=== PATIENT | male | born 1965 | race African-American/Black ===

== ENCOUNTER 2016-05-28 06:36 | Emergency (ER) | payer MEDICARE, MEDICAID ==
[~2016-05-28] VITALS: Ht 170.2 cm; Wt 86.4 kg
[~2016-05-28 06:36] MED LIST: AMLO-511 PO; ARIP10TA14 PO; AZIT250T6 PO; BACL10TA PO; PANT40TA25 PO
[2016-05-28] MEDS ORDERED: HYDR10SY16 PO (06:52)
[2016-05-28] MEDS ORDERED: HYDROCODONE/ACETAMINOPHEN 5-325 MG TABLET PO ONE (07:15)
[2016-05-28] MEDS ORDERED: IBUPROFEN 600 MG TABLET PO ONE (07:15)
[2016-05-28 09:23] VITALS: BP 160/95
== END 2016-05-28 09:36 | disposition home or self-care (01) ==
LOC: EMS 06:38
DX: R07.89 Other chest pain (principal); I10 Essential (primary) hypertension; F12.90 Cannabis use, unspecified, uncomplicated; F14.90 Cocaine use, unspecified, uncomplicated; Z88.0 Allergy status to penicillin; Z91.010 Allergy to peanuts; Z91.011 Allergy to milk products
CPT/HCPCS: 93005; 99284

== ENCOUNTER 2016-07-07 00:32 | Inpatient (IN) | payer MEDICARE, MEDICAID ==
[~2016-07-07] VITALS: Ht 170.2 cm; Wt 82.6 kg
[~2016-07-07 00:32] MED LIST changes: -AMLO-511 PO; -ARIP10TA14 PO; -AZIT250T6 PO; -BACL10TA PO; +HYDR10SY16 PO; -PANT40TA25 PO
[2016-07-07] MEDS ORDERED: QUEtiapine FUMARATE 100 MG TABLET PO PRN (03:00)
[2016-07-07 03:30] VITALS: BP 158/94
[2016-07-07] MEDS ORDERED: PNEUMOCOCCAL VACCINE POLYVALENT 0.5 ML VIAL [PPSV23] IM ONE (05:00)
[2016-07-07] MEDS ORDERED: INFLUENZA VIRUS VACCINE QVS 2016-17 (3YR+)/PF 60 MCG/0.5 ML SYRINGE IM ONE (05:00)
[2016-07-07] MEDS: LORazepam 1 MG TABLET PO PRN ×4 (05:47→21:32)
[2016-07-07 08:17] VITALS: BP 135/94
[2016-07-07] MEDS ORDERED: ACETAMINOPHEN 325 MG TABLET PO PRN (11:00)
[2016-07-07] MEDS: IBUPROFEN 600 MG TABLET PO PRN (11:08)
[2016-07-07] MEDS ORDERED: CloNIDine HCL 0.1 MG TABLET PO PRN (11:45)
[2016-07-07 16:00] VITALS: BP 131/82
[2016-07-07] MEDS: HydrOXYzine PAMOATE 25 MG CAPSULE PO SCH (17:29)
[2016-07-07] MEDS: TraMADol HCL 50 MG TABLET PO PRN (20:37)
[2016-07-07] MEDS: ZOLPIDEM TARTRATE 10 MG TABLET PO PRN (21:32)
[2016-07-08 01:35] VITALS: BP 138/86
[2016-07-08] MEDS: LORazepam 1 MG TABLET PO PRN ×4 (01:36→20:36)
[2016-07-08] MEDS: TraMADol HCL 50 MG TABLET PO PRN ×2 (06:27→16:35)
[2016-07-08] MEDS: LISINOPRIL 20 MG TABLET PO SCH (08:08)
[2016-07-08] MEDS: ARIPiprazole 10 MG TABLET PO SCH (08:08)
[2016-07-08] MEDS: AmLODIPine BESYLATE 5 MG TABLET PO SCH (08:08)
[2016-07-08] MEDS: HydrOXYzine PAMOATE 25 MG CAPSULE PO SCH ×3 (08:08→16:34)
[2016-07-08] MEDS: PANTOPRAZOLE SODIUM 40 MG DR TABLET PO SCH (08:08)
[2016-07-08 08:37] VITALS: BP 134/76
[2016-07-08 16:00] VITALS: BP 111/68
[2016-07-08] MEDS: BACLOFEN 10 MG TABLET PO PRN (16:35)
[2016-07-08] MEDS: ZOLPIDEM TARTRATE 10 MG TABLET PO PRN (20:36)
[2016-07-09 03:40] VITALS: BP 113/77
[2016-07-09] MEDS: LORazepam 1 MG TABLET PO PRN ×3 (03:46→20:16)
[2016-07-09] MEDS ORDERED: HYDR-4031 PO (04:19)
[2016-07-09] MEDS ORDERED: ARIP10TA14 PO (04:19)
[2016-07-09] MEDS ORDERED: OMEP20 PO (04:22)
[2016-07-09] MEDS ORDERED: AMLO-511 PO (04:22)
[2016-07-09] MEDS ORDERED: LISI-662 PO (04:22)
[2016-07-09 08:27] VITALS: BP 119/74
[2016-07-09] MEDS: AmLODIPine BESYLATE 5 MG TABLET PO SCH (09:21)
[2016-07-09] MEDS: LISINOPRIL 20 MG TABLET PO SCH (09:21)
[2016-07-09] MEDS: ARIPiprazole 10 MG TABLET PO SCH (09:21)
[2016-07-09] MEDS: PANTOPRAZOLE SODIUM 40 MG DR TABLET PO SCH (09:21)
[2016-07-09] MEDS: HydrOXYzine PAMOATE 25 MG CAPSULE PO SCH ×3 (09:21→16:16)
[2016-07-09] MEDS: TraMADol HCL 50 MG TABLET PO PRN (13:52)
[2016-07-09 16:01] VITALS: BP 113/66
[2016-07-09] MEDS: BACLOFEN 10 MG TABLET PO PRN (16:16)
[2016-07-09] MEDS: ZOLPIDEM TARTRATE 10 MG TABLET PO PRN (20:15)
[2016-07-10 05:26] VITALS: BP 119/75
[2016-07-10] MEDS: IBUPROFEN 600 MG TABLET PO PRN (05:36)
[2016-07-10] MEDS: LORazepam 1 MG TABLET PO PRN ×2 (06:53→16:46)
[2016-07-10] MEDS: LISINOPRIL 20 MG TABLET PO SCH (08:26)
[2016-07-10] MEDS: HydrOXYzine PAMOATE 25 MG CAPSULE PO SCH ×3 (08:26→16:46)
[2016-07-10] MEDS: PANTOPRAZOLE SODIUM 40 MG DR TABLET PO SCH (08:26)
[2016-07-10] MEDS: ARIPiprazole 10 MG TABLET PO SCH (08:27)
[2016-07-10] MEDS: AmLODIPine BESYLATE 5 MG TABLET PO SCH (08:27)
[2016-07-10 08:38] VITALS: BP 107/62
[2016-07-10 16:18] VITALS: BP 114/74
[2016-07-10] MEDS: BACLOFEN 10 MG TABLET PO PRN (16:47)
[2016-07-10] MEDS: TraMADol HCL 50 MG TABLET PO PRN (16:47)
[2016-07-10] MEDS: ZOLPIDEM TARTRATE 10 MG TABLET PO PRN (20:32)
[2016-07-11 06:30] VITALS: BP 121/75
[2016-07-11] MEDS: IBUPROFEN 600 MG TABLET PO PRN ×2 (06:39→16:44)
[2016-07-11 07:40] LABS: BASOPHILS % (AUTO) 0.6 % (0.0-2.0); EOSINOPHILS % (AUTO) 2.2 % (1.0-6.0); HEMATOCRIT 45.5 % (41-53); HEMOGLOBIN 14.6 g/dL (13.5-17.5); LYMPHOCYTES # (AUTO) 2.2 K/uL (1.0-4.8); LYMPHOCYTES % (AUTO) 24.8 % (22.0-44.0); MEAN CORPUSCULAR HEMOGLOBIN 27.6 pg (26.0-34.0); MEAN CORPUSCULAR HGB CONC 32.1 G/dL (31.0-37.0); MEAN CORPUSCULAR VOLUME 86 fL (80-100); MONOCYTES # (AUTO) 0.6 K/uL (0.1-1.0); MONOCYTES % (AUTO) 6.6 % (2.0-9.0); NEUTROPHILS # (AUTO) 5.9 K/uL (1.8-7.7); NEUTROPHILS % (AUTO) 65.8 % (40.0-70.0); PLATELET COUNT (AUTO) 267 K/uL (150-450); RED BLOOD CELL COUNT(AUTO) 5.28 MIL/uL (4.50-5.90); RED CELL DISTRIBUTION WIDTH 12.5 % (11.5-14.5)
[2016-07-11 08:08] LABS: ALANINE AMINOTRANSFERASE 43 U/L (12-78); ALBUMIN 3.7 g/dL (3.4-5.0); ANION GAP 4 mmol/L (8-16); ASPARTATE AMINOTRANSFERASE 23 U/L (15-37); BILIRUBIN,TOTAL 0.3 mg/dL (0.1-1.0); CALCIUM, TOTAL 8.9 mg/dL (8.8-10.5); CARBON DIOXIDE 31 mmol/L (22-29); CHLORIDE 104 mmol/L (98-107); CHOL/HDL RATIO 3.7 (4.2-7.3); CREATININE 1.01 mg/dL (0.60-1.30); GLOMERULAR FILTR. RATE CALC > 60 mL/min (>60); POTASSIUM 4.5 mmol/L (3.5-5.1); SODIUM SERUM 139 mmol/L (136-145); TOTAL PROTEIN, SERUM 7.1 g/dL (6.4-8.2); UREA NITROGEN, BLOOD 14 mg/dL (7-18)
[2016-07-11 08:20] VITALS: BP 123/67
[2016-07-11 08:24] LABS: HEMOGLOBIN A1C 5.3 % (4.5-6.2)
[2016-07-11 08:29] LABS: THYROID STIMULATING HORMONE 1.33 uIU/mL (0.36-3.74)
[2016-07-11] MEDS: PANTOPRAZOLE SODIUM 40 MG DR TABLET PO SCH (09:21)
[2016-07-11] MEDS: ARIPiprazole 10 MG TABLET PO SCH (09:21)
[2016-07-11] MEDS: AmLODIPine BESYLATE 5 MG TABLET PO SCH (09:22)
[2016-07-11] MEDS: HydrOXYzine PAMOATE 25 MG CAPSULE PO SCH ×3 (09:22→16:44)
[2016-07-11] MEDS: LISINOPRIL 20 MG TABLET PO SCH (09:22)
[2016-07-11] MEDS: TraMADol HCL 50 MG TABLET PO PRN (10:18)
[2016-07-11 11:18] VITALS: BP 127/75
[2016-07-11] MEDS: LORazepam 1 MG TABLET PO PRN ×2 (15:15→19:17)
[2016-07-11 16:49] VITALS: BP 125/80
[2016-07-12 04:58] VITALS: BP 134/87
[2016-07-12] MEDS: TraMADol HCL 50 MG TABLET PO PRN ×2 (05:00→17:51)
[2016-07-12 09:00] VITALS: BP 119/61
[2016-07-12 09:14] VITALS: BP 119/61
[2016-07-12] MEDS: HydrOXYzine PAMOATE 25 MG CAPSULE PO SCH ×3 (09:23→17:22)
[2016-07-12] MEDS: PANTOPRAZOLE SODIUM 40 MG DR TABLET PO SCH (09:23)
[2016-07-12] MEDS: LISINOPRIL 20 MG TABLET PO SCH (09:24)
[2016-07-12] MEDS: ARIPiprazole 10 MG TABLET PO SCH (09:24)
[2016-07-12] MEDS: AmLODIPine BESYLATE 5 MG TABLET PO SCH (09:24)
[2016-07-12] MEDS: LORazepam 1 MG TABLET PO PRN (13:18)
[2016-07-12] MEDS: IBUPROFEN 600 MG TABLET PO PRN (13:18)
[2016-07-12 16:46] VITALS: BP 131/75
[2016-07-12 17:49] VITALS: BP 129/65
[2016-07-12] MEDS: ZOLPIDEM TARTRATE 10 MG TABLET PO PRN (22:10)
[2016-07-13 04:50] VITALS: BP 138/70
[2016-07-13] MEDS: TraMADol HCL 50 MG TABLET PO PRN (04:55)
== END 2016-07-13 07:40 | disposition home or self-care (01) | DRG 885 ==
LOC: B3A 02:00 → EDSTATUS 03:29 → B3A 07-10 13:56 → B2S 07-11 10:43
PROVIDERS: ATTEND Psychiatry & Neurology Psychiatry
DX: F25.0 Schizoaffective disorder, bipolar type (principal); E55.9 Vitamin D deficiency, unspecified; B19.20 Unspecified viral hepatitis C without hepatic coma; F17.210 Nicotine dependence, cigarettes, uncomplicated; I12.9 Hypertensive chronic kidney disease with stage 1 through stage 4 chronic kidney disease, or unspecified chronic kidney disease; F15.10 Other stimulant abuse, uncomplicated; F14.10 Cocaine abuse, uncomplicated; K21.9 Gastro-esophageal reflux disease without esophagitis; M19.90 Unspecified osteoarthritis, unspecified site; F12.10 Cannabis abuse, uncomplicated; N18.9 Chronic kidney disease, unspecified; Z91.5 Personal history of self-harm; Z79.899 Other long term (current) drug therapy; Z88.0 Allergy status to penicillin; Z88.8 Allergy status to other drugs, medicaments and biological substances; Z91.011 Allergy to milk products; Z91.010 Allergy to peanuts; Z28.21 Immunization not carried out because of patient refusal; Z72.89 Other problems related to lifestyle; Z98.890 Other specified postprocedural states
CPT/HCPCS: 83036; 84439; 84443

== ENCOUNTER 2016-08-31 14:52 | Inpatient (IN) | payer MEDICARE, MEDICAID ==
[~2016-08-31] VITALS: Ht 172.7 cm; Wt 76.2 kg
[~2016-08-31 14:52] MED LIST changes: +AMLO-511 PO; +ARIP10TA14 PO; +HYDR-4031 PO; -HYDR10SY16 PO; +LISI-662 PO; +OMEP20 PO
[2016-08-31 15:27] VITALS: BP 142/64
[2016-08-31] MEDS ORDERED: ZOLPIDEM TARTRATE 10 MG TABLET PO PRN (16:00)
[2016-08-31] MEDS ORDERED: HALOPERIDOL 5 MG TABLET PO PRN (16:00)
[2016-08-31 16:41] VITALS: BP 131/85
[2016-08-31] MEDS ORDERED: PNEUMOCOCCAL VACCINE POLYVALENT 0.5 ML VIAL [PPSV23] IM ONE (17:00)
[2016-08-31] MEDS: HydrOXYzine PAMOATE 25 MG CAPSULE PO SCH (18:09)
[2016-09-01 00:12] VITALS: BP 134/81
[2016-09-01 07:58] LABS: BASOPHILS # (AUTO) 0.06 K/uL (0.00-0.20); BASOPHILS % (AUTO) 0.9 % (0.0-2.0); EOSINOPHILS % (AUTO) 2.88 % (1.0-6.0); HEMATOCRIT 39.9 % (41-53); LYMPHOCYTES # (AUTO) 1.9 K/uL (1.0-4.8); LYMPHOCYTES % (AUTO) 26.8 % (22.0-44.0); MEAN CORPUSCULAR HEMOGLOBIN 28.2 pg (26.0-34.0); MEAN CORPUSCULAR HGB CONC 32.5 G/dL (31.0-37.0); MEAN CORPUSCULAR VOLUME 87 fL (80-100); MONOCYTES # (AUTO) 0.6 K/uL (0.1-1.0); MONOCYTES % (AUTO) 8.4 % (2.0-9.0); NEUTROPHILS # (AUTO) 4.3 K/uL (1.8-7.7); PLATELET COUNT (AUTO) 197 K/uL (150-450); RED BLOOD CELL COUNT(AUTO) 4.61 MIL/uL (4.50-5.90); RED CELL DISTRIBUTION WIDTH 14.6 % (11.5-14.5)
[2016-09-01 08:10] VITALS: BP 136/78
[2016-09-01 08:13] LABS: ALANINE AMINOTRANSFERASE 42 U/L (12-78); ALBUMIN 3.4 g/dL (3.4-5.0); ANION GAP 7 mmol/L (8-16); ASPARTATE AMINOTRANSFERASE 23 U/L (15-37); BILIRUBIN,TOTAL 0.2 mg/dL (0.1-1.0); CALCIUM, TOTAL 8.8 mg/dL (8.8-10.5); CARBON DIOXIDE 29 mmol/L (22-29); CHLORIDE 107 mmol/L (98-107); CREATININE 0.97 mg/dL (0.60-1.30); GLOMERULAR FILTR. RATE CALC > 60 mL/min (>60); POTASSIUM 4.1 mmol/L (3.5-5.1); SODIUM SERUM 143 mmol/L (136-145); TOTAL PROTEIN, SERUM 6.5 g/dL (6.4-8.2); UREA NITROGEN, BLOOD 13 mg/dL (7-18)
[2016-09-01] MEDS: ARIPiprazole 10 MG TABLET PO SCH (08:56)
[2016-09-01] MEDS: HydrOXYzine PAMOATE 25 MG CAPSULE PO SCH ×3 (08:56→16:29)
[2016-09-01] MEDS: OMEPRAZOLE 20 MG CAPSULE PO SCH (08:56)
[2016-09-01] MEDS: AmLODIPine BESYLATE 5 MG TABLET PO SCH (08:57)
[2016-09-01] MEDS: LISINOPRIL 20 MG TABLET PO SCH (08:57)
[2016-09-01 09:36] LABS: APPEARANCE,URINE CLEAR (CLEAR); GLUCOSE, URINE (UA) NEGATIVE (NEGATIVE); KETONES,URINE NEGATIVE (NEGATIVE); LEUKOCYTE ESTERASE ,URINE NEGATIVE (NEGATIVE); OCCULT BLOOD,URINE NEGATIVE (NEGATIVE); PH,URINE 5.5 (5.0-8.0); PROTEIN,URINE NEGATIVE (NEGATIVE)
[2016-09-01 09:37] LABS: ADD UA MICROSCOPIC NO
[2016-09-01 10:20] VITALS: BP 135/83
[2016-09-01] MEDS: ACETAMINOPHEN 325 MG TABLET PO PRN ×2 (10:21→19:21)
[2016-09-01 11:21] VITALS: BP 128/80
[2016-09-01] MEDS: GABAPENTIN 300 MG CAPSULE PO SCH ×2 (13:04→16:29)
[2016-09-01 16:00] VITALS: BP 123/71
[2016-09-01] MEDS: IBUPROFEN 600 MG TABLET PO PRN (16:30)
[2016-09-01 19:21] VITALS: BP 126/74
[2016-09-02] MEDS: LORazepam 2 MG TABLET PO PRN ×3 (00:32→16:46)
[2016-09-02 02:24] VITALS: BP 135/80
[2016-09-02 08:08] VITALS: BP 141/56
[2016-09-02] MEDS: ARIPiprazole 10 MG TABLET PO SCH (08:43)
[2016-09-02] MEDS: HydrOXYzine PAMOATE 25 MG CAPSULE PO SCH ×3 (08:43→16:46)
[2016-09-02] MEDS: GABAPENTIN 300 MG CAPSULE PO SCH ×3 (08:43→16:46)
[2016-09-02] MEDS: OMEPRAZOLE 20 MG CAPSULE PO SCH (08:44)
[2016-09-02] MEDS: AmLODIPine BESYLATE 5 MG TABLET PO SCH (08:44)
[2016-09-02] MEDS: LISINOPRIL 20 MG TABLET PO SCH (08:44)
[2016-09-02 16:34] VITALS: BP 134/92
[2016-09-02] MEDS: IBUPROFEN 600 MG TABLET PO PRN (16:47)
[2016-09-03 04:08] VITALS: BP 141/88
[2016-09-03] MEDS: LORazepam 2 MG TABLET PO PRN ×3 (06:30→21:36)
[2016-09-03] MEDS: IBUPROFEN 600 MG TABLET PO PRN (06:31)
[2016-09-03] MEDS: GABAPENTIN 300 MG CAPSULE PO SCH ×3 (08:04→17:00)
[2016-09-03] MEDS: ARIPiprazole 10 MG TABLET PO SCH (08:04)
[2016-09-03] MEDS: LISINOPRIL 20 MG TABLET PO SCH (08:05)
[2016-09-03] MEDS: OMEPRAZOLE 20 MG CAPSULE PO SCH (08:05)
[2016-09-03] MEDS: AmLODIPine BESYLATE 5 MG TABLET PO SCH (08:05)
[2016-09-03] MEDS: HydrOXYzine PAMOATE 25 MG CAPSULE PO SCH ×3 (08:05→16:59)
[2016-09-03 08:15] VITALS: BP 124/74
[2016-09-03 16:09] VITALS: BP 126/73
[2016-09-04 04:32] VITALS: BP 126/74
[2016-09-04] MEDS: LORazepam 2 MG TABLET PO PRN ×2 (04:32→08:46)
[2016-09-04 08:02] VITALS: BP 120/70
[2016-09-04] MEDS: IBUPROFEN 600 MG TABLET PO PRN (08:46)
[2016-09-04] MEDS: GABAPENTIN 300 MG CAPSULE PO SCH ×3 (08:46→17:28)
[2016-09-04] MEDS: OMEPRAZOLE 20 MG CAPSULE PO SCH (08:46)
[2016-09-04] MEDS: HydrOXYzine PAMOATE 25 MG CAPSULE PO SCH ×3 (08:46→17:00)
[2016-09-04] MEDS: AmLODIPine BESYLATE 5 MG TABLET PO SCH (08:46)
[2016-09-04] MEDS: ARIPiprazole 10 MG TABLET PO SCH (08:46)
[2016-09-04] MEDS: LISINOPRIL 20 MG TABLET PO SCH (08:50)
[2016-09-04] MEDS ORDERED: TraMADol HCL 50 MG TABLET PO PRN (11:30)
[2016-09-04] MEDS ORDERED: BACLOFEN 10 MG TABLET PO PRN (11:30)
[2016-09-04] MEDS ORDERED: BACLOFEN 10 MG TABLET PO SCH (13:00)
[2016-09-04] MEDS ORDERED: GABA-531 PO (15:41)
[2016-09-04 16:00] VITALS: BP 120/67
== END 2016-09-04 18:15 | disposition home or self-care (01) | DRG 885 ==
LOC: B2S 16:02 → B3A 09-02 14:35
PROVIDERS: ADMIT Psychiatry & Neurology Psychiatry; ATTEND Psychiatry & Neurology Psychiatry
PROC: 3E0234Z Introduction of Serum, Toxoid and Vaccine into Muscle, Percutaneous Approach (ICD-10-PCS; principal; 2016-09-01)
DX: F25.9 Schizoaffective disorder, unspecified (principal); F22 Delusional disorders; K21.9 Gastro-esophageal reflux disease without esophagitis; I10 Essential (primary) hypertension; E55.9 Vitamin D deficiency, unspecified; D64.9 Anemia, unspecified; F12.90 Cannabis use, unspecified, uncomplicated; F15.90 Other stimulant use, unspecified, uncomplicated; F17.200 Nicotine dependence, unspecified, uncomplicated; M19.90 Unspecified osteoarthritis, unspecified site; Z80.3 Family history of malignant neoplasm of breast; Z82.49 Family history of ischemic heart disease and other diseases of the circulatory system; Z91.010 Allergy to peanuts; Z88.0 Allergy status to penicillin; Z88.8 Allergy status to other drugs, medicaments and biological substances; Z59.0 Homelessness; Z91.048 Other nonmedicinal substance allergy status; Z72.89 Other problems related to lifestyle; Z23 Encounter for immunization; Z79.899 Other long term (current) drug therapy
CPT/HCPCS: 80307; 90471

== ENCOUNTER 2017-03-12 10:16 | Inpatient (IN) | payer MEDICARE ==
[~2017-03-12] VITALS: Ht 172.7 cm; Wt 77.1 kg
[~2017-03-12 10:16] MED LIST changes: -AMLO-511 PO; -ARIP10TA14 PO; +ARIP10TA8 PO; +GABA-531 PO; -LISI-662 PO; -OMEP20 PO
[2017-03-12 10:40] LABS: EOSINOPHILS % (AUTO) 1.7 % (1.0-6.0); HEMATOCRIT 35.8 % (41-53); HEMOGLOBIN 12.2 g/dL (13.5-17.5); LYMPHOCYTES % (AUTO) 15.2 % (22.0-44.0); MEAN CORPUSCULAR HEMOGLOBIN 29.5 pg (26.0-34.0); MEAN CORPUSCULAR VOLUME 87 fL (80-100); MONOCYTES # (AUTO) 0.7 K/uL (0.1-1.0); MONOCYTES % (AUTO) 10.1 % (2.0-9.0); NEUTROPHILS # (AUTO) 4.6 K/uL (1.8-7.7); PLATELET COUNT (AUTO) 257 K/uL (150-450); RED BLOOD CELL COUNT(AUTO) 4.12 MIL/uL (4.50-5.90); RED CELL DISTRIBUTION WIDTH 14.1 % (11.5-14.5); WHITE BLOOD COUNT (AUTO) 6.4 K/uL (4.5-11.0)
[2017-03-12 10:48] LABS: ANION GAP 10 mmol/L (8-16); CALCIUM, TOTAL 8.8 mg/dL (8.8-10.5); CARBON DIOXIDE 25 mmol/L (22-29); CHLORIDE 103 mmol/L (98-107); CREATININE 0.98 mg/dL (0.60-1.30); GLOMERULAR FILTR. RATE CALC > 60 mL/min (>60); POTASSIUM 3.3 mmol/L (3.5-5.1); SODIUM SERUM 138 mmol/L (136-145); UREA NITROGEN, BLOOD 13 mg/dL (7-18)
[2017-03-12 10:54] LABS: ALANINE AMINOTRANSFERASE 37 U/L (12-78); ALBUMIN 3.2 g/dL (3.4-5.0); ASPARTATE AMINOTRANSFERASE 36 U/L (15-37); BILIRUBIN,TOTAL 0.6 mg/dL (0.1-1.0); TOTAL PROTEIN, SERUM 6.9 g/dL (6.4-8.2)
[2017-03-12] MEDS ORDERED: ARIP15TA2 PO (11:27)
[2017-03-12] MEDS ORDERED: HALOPERIDOL LACTATE 5 MG/ML VIAL IM ONE (11:30)
[2017-03-12] MEDS ORDERED: DiphenhydrAMINE HCL 50 MG/ML VIAL IM ONE (11:30)
[2017-03-12] MEDS ORDERED: LORazepam 2 MG/ML VIAL IM ONE (11:30)
[2017-03-12] MEDS: POTASSIUM CHLORIDE 20 MEQ ER TABLET PO ONE (13:40)
[2017-03-12 14:03] LABS: CHOL/HDL RATIO 1.9 (4.2-7.3); THYROID STIMULATING HORMONE 0.54 uIU/mL (0.36-3.74)
[2017-03-12 16:00] VITALS: BP 132/81
[2017-03-12] MEDS ORDERED: INFLUENZA VIRUS VACCINE QVS 2017-18 (3YR+)/PF 60 MCG/0.5 ML SYRINGE IM ONE (18:30)
[2017-03-13] MEDS: ARIPiprazole 15 MG TABLET PO SCH (08:45)
[2017-03-13] MEDS: GABAPENTIN 300 MG CAPSULE PO SCH ×3 (08:45→16:33)
[2017-03-13 08:48] VITALS: BP 111/66
[2017-03-13] MEDS ORDERED: POTASSIUM CHLORIDE 20 MEQ ER TABLET PO ONE (15:15)
[2017-03-13] MEDS: POTASSIUM CHLORIDE 20 MEQ ER TABLET PO ONE (15:18)
[2017-03-13 16:20] VITALS: BP 132/81
[2017-03-13] MEDS: LORazepam 2 MG TABLET PO PRN (16:33)
[2017-03-14 08:03] VITALS: BP 135/84
[2017-03-14] MEDS: GABAPENTIN 300 MG CAPSULE PO SCH ×3 (09:02→16:23)
[2017-03-14] MEDS: ARIPiprazole 15 MG TABLET PO SCH (09:02)
[2017-03-14 16:00] VITALS: BP 128/75
[2017-03-14] MEDS: HALOPERIDOL 5 MG TABLET PO PRN (16:23)
[2017-03-14] MEDS: LORazepam 2 MG TABLET PO PRN (16:23)
[2017-03-15 07:07] VITALS: BP 142/94
[2017-03-15 08:02] VITALS: BP 145/85
[2017-03-15] MEDS: GABAPENTIN 300 MG CAPSULE PO SCH ×3 (08:22→16:23)
[2017-03-15] MEDS: ARIPiprazole 15 MG TABLET PO SCH (08:23)
[2017-03-15] MEDS: LORazepam 2 MG TABLET PO PRN ×2 (08:23→16:23)
[2017-03-15 16:00] VITALS: BP 117/79
[2017-03-15] MEDS: HALOPERIDOL 5 MG TABLET PO PRN (18:05)
[2017-03-16 03:04] VITALS: BP 123/85
[2017-03-16 08:08] VITALS: BP 130/81
[2017-03-16] MEDS: GABAPENTIN 300 MG CAPSULE PO SCH ×3 (08:55→16:56)
[2017-03-16] MEDS: ARIPiprazole 15 MG TABLET PO SCH (08:55)
[2017-03-16] MEDS: LORazepam 2 MG TABLET PO PRN ×2 (11:29→16:56)
[2017-03-16] MEDS: HALOPERIDOL 5 MG TABLET PO PRN ×2 (11:29→16:57)
[2017-03-16 16:00] VITALS: BP 121/88
[2017-03-16] MEDS: ZOLPIDEM TARTRATE 10 MG TABLET PO PRN (20:32)
[2017-03-17 05:00] VITALS: BP 124/83
[2017-03-17] MEDS: ARIPiprazole 15 MG TABLET PO SCH (08:56)
[2017-03-17] MEDS: GABAPENTIN 300 MG CAPSULE PO SCH ×3 (08:56→16:10)
[2017-03-17 09:06] VITALS: BP 116/81
[2017-03-17] MEDS: HALOPERIDOL 5 MG TABLET PO PRN (16:10)
[2017-03-17] MEDS: LORazepam 2 MG TABLET PO PRN (16:10)
[2017-03-17 16:48] VITALS: BP 113/68
[2017-03-17] MEDS: ZOLPIDEM TARTRATE 10 MG TABLET PO PRN (20:14)
[2017-03-18 06:59] VITALS: BP 155/71
[2017-03-18] MEDS: ARIPiprazole 15 MG TABLET PO SCH (08:04)
[2017-03-18] MEDS: GABAPENTIN 300 MG CAPSULE PO SCH ×3 (08:04→16:25)
[2017-03-18 08:22] VITALS: BP 130/76
[2017-03-18] MEDS: LORazepam 2 MG TABLET PO PRN (09:43)
[2017-03-18] MEDS ORDERED: ARIP10TA8 PO (15:13)
[2017-03-19] MEDS ORDERED: ARIPiprazole 10 MG TABLET PO SCH (09:00)
== END 2017-03-18 16:55 | disposition short-term general hospital (02) | DRG 885 ==
LOC: EMS 10:17 → B3A 14:33
DX: F20.0 Paranoid schizophrenia (principal); Z59.0 Homelessness; D64.9 Anemia, unspecified; F14.90 Cocaine use, unspecified, uncomplicated; F32.9 Major depressive disorder, single episode, unspecified; I10 Essential (primary) hypertension; Z28.21 Immunization not carried out because of patient refusal; K21.9 Gastro-esophageal reflux disease without esophagitis; Z91.5 Personal history of self-harm; G89.29 Other chronic pain; Z88.0 Allergy status to penicillin; Z88.8 Allergy status to other drugs, medicaments and biological substances; Z91.011 Allergy to milk products; Z91.010 Allergy to peanuts
CPT/HCPCS: 84132; 84439; 84443; 90471; 96372; 99285; G0480; J1200; J1630; J2060

== ENCOUNTER 2019-02-10 20:16 | Inpatient (IN) | payer MEDICARE ==
[~2019-02-10] VITALS: Ht 170.2 cm; Wt 74.5 kg
[~2019-02-10 20:16] MED LIST changes: -HYDR-4031 PO
[2019-02-10] MEDS ORDERED: HALOPERIDOL 5 MG TABLET PO PRN (20:45)
[2019-02-10] MEDS ORDERED: ZOLPIDEM TARTRATE 10 MG TABLET PO PRN (20:45)
[2019-02-10 21:00] VITALS: BP 110/60
[2019-02-10 21:34] VITALS: BP 110/60
[2019-02-10 22:00] VITALS: BP 123/76
[2019-02-10 23:03] VITALS: BP 124/69
[2019-02-11] VITALS (8 sets, daily range): BP systolic 115–140; BP diastolic 72–100
[2019-02-11] MEDS ORDERED: INFLUENZA VIRUS VACCINE QVS 2019-20 (3YR+)/PF 60 MCG/0.5 ML SYRINGE IM ONE (06:45)
[2019-02-11 07:54] LABS: EOSINOPHILS % (AUTO) 3.9 % (1.0-6.0); HEMOGLOBIN 12.4 g/dL (13.5-17.5); LYMPHOCYTES # (AUTO) 1.7 K/uL (1.0-4.8); LYMPHOCYTES % (AUTO) 29.9 % (22.0-44.0); MEAN CORPUSCULAR HGB CONC 33.6 G/dL (31.0-37.0); MEAN CORPUSCULAR VOLUME 86 fL (80-100); MONOCYTES # (AUTO) 0.6 K/uL (0.1-1.0); MONOCYTES % (AUTO) 10.6 % (2.0-9.0); NEUTROPHILS # (AUTO) 3.1 K/uL (1.8-7.7); NEUTROPHILS % (AUTO) 54.6 % (40.0-70.0); PLATELET COUNT (AUTO) 179 K/uL (150-450); RED BLOOD CELL COUNT(AUTO) 4.29 MIL/uL (4.50-5.90); RED CELL DISTRIBUTION WIDTH 13.5 % (11.5-14.5)
[2019-02-11 07:59] LABS: HEMOGLOBIN A1C 5.3 % (4.5-6.2)
[2019-02-11] MEDS ORDERED: PETROLATUM,WHITE 28 GM JELLY TP PRN (08:15)
[2019-02-11] MEDS ORDERED: LOPERAMIDE HCL 2 MG CAPSULE PO PRN (08:15)
[2019-02-11] MEDS ORDERED: OMEPRAZOLE 20 MG CAPSULE PO PRN (08:15)
[2019-02-11] MEDS ORDERED: ONDANSETRON HCL 4 MG TABLET PO PRN (08:15)
[2019-02-11] MEDS ORDERED: MAG HYDROX/AL HYDROX/SIMETH ES 30 ML SUSPENSION UDCUP PO PRN (08:15)
[2019-02-11] MEDS ORDERED: ALBUTEROL SULFATE HFA 90 MCG/PUFF 8 GM INHALER IH PRN (08:15)
[2019-02-11] MEDS ORDERED: MAGNESIUM HYDROXIDE SUSPENSION 30 ML UDCUP PO PRN (08:15)
[2019-02-11] MEDS ORDERED: BENZOCAINE/MENTHOL LOZENGE MM PRN (08:15)
[2019-02-11] MEDS ORDERED: DOCUSATE SODIUM 100 MG CAPSULE PO PRN (08:15)
[2019-02-11] MEDS ORDERED: ACETAMINOPHEN 325 MG TABLET PO PRN (08:15)
[2019-02-11] MEDS ORDERED: CloNIDine HCL 0.1 MG TABLET PO PRN (08:15)
[2019-02-11] MEDS ORDERED: BACITRACIN 28.4 GM OINTMENT TP PRN (08:15)
[2019-02-11 08:29] LABS: ALANINE AMINOTRANSFERASE 32 U/L (12-78); ALBUMIN 2.9 g/dL (3.4-5.0); ALKALINE PHOSPHATASE 81 U/L (46-116); ANION GAP 7 mmol/L (8-16); ASPARTATE AMINOTRANSFERASE 30 U/L (15-37); BILIRUBIN,TOTAL 0.4 mg/dL (0.1-1.0); CARBON DIOXIDE 29 mmol/L (22-29); CHLORIDE 103 mmol/L (98-107); CHOL/HDL RATIO 2.4 (4.2-7.3); CHOLESTEROL 121 mg/dL (131-200); FREE T4 (FREE THYROXINE) 1.13 ng/dL (0.76-1.46); GLOMERULAR FILTR. RATE CALC > 60 mL/min (>60); GLUCOSE,RANDOM 83 mg/dL (70-110); HDL CHOLESTEROL 50 mg/dL (40-60); LDL CHOL (CALC.) 67 mg/dL (0-130); POTASSIUM 3.2 mmol/L (3.5-5.1); SODIUM SERUM 139 mmol/L (136-145); THYROID STIMULATING HORMONE 0.87 uIU/mL (0.36-3.74); TRIGLYCERIDES 19 mg/dL (15-150)
[2019-02-11 08:35] LABS: CALCIUM, TOTAL 8.2 mg/dL (8.8-10.5); UREA NITROGEN, BLOOD 10 mg/dL (7-18)
[2019-02-11] MEDS: LORazepam 2 MG TABLET PO PRN (09:21)
[2019-02-11] MEDS ORDERED: POTASSIUM CHLORIDE 20 MEQ ER TABLET PO ONE (09:30)
[2019-02-11] MEDS: ARIPiprazole 10 MG TABLET PO SCH (13:45)
[2019-02-11] MEDS: GABAPENTIN 300 MG CAPSULE PO SCH (16:39)
[2019-02-12 06:34] VITALS: BP 132/83
[2019-02-12 06:45] VITALS: BP 132/83
[2019-02-12 07:37] LABS: ANION GAP 8 mmol/L (8-16); CARBON DIOXIDE 26 mmol/L (22-29); CHLORIDE 103 mmol/L (98-107); CREATININE 0.81 mg/dL (0.60-1.30); GLUCOSE,RANDOM 82 mg/dL (70-110); POTASSIUM 4.1 mmol/L (3.5-5.1); SODIUM SERUM 137 mmol/L (136-145); UREA NITROGEN, BLOOD 8 mg/dL (7-18)
[2019-02-12 07:38] LABS: CALCIUM, TOTAL 8.2 mg/dL (8.8-10.5); GLOMERULAR FILTR. RATE CALC > 60 mL/min (>60)
[2019-02-12] MEDS: GABAPENTIN 300 MG CAPSULE PO SCH ×3 (08:31→16:23)
[2019-02-12] MEDS: ARIPiprazole 10 MG TABLET PO SCH (08:31)
[2019-02-12 08:51] VITALS: BP 140/86
[2019-02-12 16:19] VITALS: BP 130/91
[2019-02-12] MEDS: LORazepam 2 MG TABLET PO PRN (16:24)
[2019-02-13] VITALS: BP 121/68
[2019-02-13] MEDS: LORazepam 2 MG TABLET PO PRN ×2 (00:17→22:48)
[2019-02-13] MEDS: ARIPiprazole 10 MG TABLET PO SCH (08:39)
[2019-02-13] MEDS: GABAPENTIN 300 MG CAPSULE PO SCH ×3 (08:40→16:31)
[2019-02-13 08:46] VITALS: BP 127/80
[2019-02-13 10:28] VITALS: BP 130/82
[2019-02-13] MEDS: IBUPROFEN 600 MG TABLET PO PRN (10:28)
[2019-02-13 16:20] VITALS: BP 125/76
[2019-02-13] MEDS ORDERED: DICLOFENAC SODIUM 1% 100 GM GEL [2GM] TP PRN (21:00)
[2019-02-14 00:26] VITALS: BP 123/80
[2019-02-14] MEDS ORDERED: MULTIVITAMINS WITH IRON TABLET PO SCH (07:30)
[2019-02-14 08:15] VITALS: BP 132/68
[2019-02-14] MEDS: ARIPiprazole 10 MG TABLET PO SCH (09:03)
[2019-02-14] MEDS: GABAPENTIN 300 MG CAPSULE PO SCH ×2 (09:03→12:23)
[2019-02-14] MEDS: IBUPROFEN 600 MG TABLET PO PRN (11:16)
== END 2019-02-14 13:25 | disposition home or self-care (01) | DRG 885 ==
LOC: B2X 20:38
PROVIDERS: ADMIT Psychiatry & Neurology Psychiatry; ATTEND Psychiatry & Neurology Psychiatry
DX: F25.9 Schizoaffective disorder, unspecified (principal); R45.851 Suicidal ideations; F22 Delusional disorders; F41.9 Anxiety disorder, unspecified; G47.00 Insomnia, unspecified; K59.00 Constipation, unspecified; Z88.0 Allergy status to penicillin; Z88.8 Allergy status to other drugs, medicaments and biological substances; Z91.018 Allergy to other foods
CPT/HCPCS: 83036; 84439; 84443

== ENCOUNTER 2019-03-12 09:27 | Inpatient (IN) | payer MEDICARE ==
[~2019-03-12] VITALS: Ht 165.1 cm; Wt 72.6 kg
[2019-03-12 09:57] LABS: EOSINOPHILS % (AUTO) 1.6 % (1.0-6.0); HEMATOCRIT 40.9 % (41-53); HEMOGLOBIN 13.5 g/dL (13.5-17.5); LYMPHOCYTES # (AUTO) 1.8 K/uL (1.0-4.8); LYMPHOCYTES % (AUTO) 20.9 % (22.0-44.0); MEAN CORPUSCULAR HEMOGLOBIN 28.7 pg (26.0-34.0); MEAN CORPUSCULAR VOLUME 87 fL (80-100); MONOCYTES # (AUTO) 0.6 K/uL (0.1-1.0); MONOCYTES % (AUTO) 7.4 % (2.0-9.0); NEUTROPHILS # (AUTO) 5.9 K/uL (1.8-7.7); NEUTROPHILS % (AUTO) 69.1 % (40.0-70.0); PLATELET COUNT (AUTO) 207 K/uL (150-450); RED CELL DISTRIBUTION WIDTH 13.2 % (11.5-14.5)
[2019-03-12 10:05] LABS: ANION GAP 7 mmol/L (8-16); CALCIUM, TOTAL 9.3 mg/dL (8.8-10.5); CARBON DIOXIDE 31 mmol/L (22-29); CHLORIDE 105 mmol/L (98-107); CREATININE 0.87 mg/dL (0.60-1.30); GLOMERULAR FILTR. RATE CALC > 60 mL/min (>60); GLUCOSE,RANDOM 77 mg/dL (70-110); POTASSIUM 3.9 mmol/L (3.5-5.1); SODIUM SERUM 143 mmol/L (136-145); UREA NITROGEN, BLOOD 11 mg/dL (7-18)
[2019-03-12 10:12] LABS: ALANINE AMINOTRANSFERASE 35 U/L (12-78); ALBUMIN 3.8 g/dL (3.4-5.0); ALKALINE PHOSPHATASE 91 U/L (46-116); ASPARTATE AMINOTRANSFERASE 35 U/L (15-37); BILIRUBIN,TOTAL 0.7 mg/dL (0.1-1.0); TOTAL PROTEIN, SERUM 7.5 g/dL (6.4-8.2)
[2019-03-12] MEDS ORDERED: HALOPERIDOL 5 MG TABLET PO PRN (11:45)
[2019-03-12] MEDS ORDERED: HALOPERIDOL LACTATE 5 MG/ML VIAL IM ONE (14:00)
[2019-03-12] MEDS ORDERED: LORazepam 2 MG/ML VIAL IM ONE (14:00)
[2019-03-12] MEDS ORDERED: DiphenhydrAMINE HCL 50 MG/ML VIAL IM ONE (14:00)
[2019-03-12 15:39] VITALS: BP 123/78
[2019-03-12] MEDS ORDERED: BACITRACIN 28.4 GM OINTMENT TP PRN (16:00)
[2019-03-12] MEDS ORDERED: DOCUSATE SODIUM 100 MG CAPSULE PO PRN (16:00)
[2019-03-12] MEDS ORDERED: PETROLATUM,WHITE 28 GM JELLY TP PRN (16:00)
[2019-03-12] MEDS ORDERED: LOPERAMIDE HCL 2 MG CAPSULE PO PRN (16:00)
[2019-03-12] MEDS ORDERED: ALBUTEROL SULFATE HFA 90 MCG/PUFF 8 GM INHALER IH PRN (16:00)
[2019-03-12] MEDS ORDERED: BENZOCAINE/MENTHOL LOZENGE MM PRN (16:00)
[2019-03-12] MEDS ORDERED: ACETAMINOPHEN 325 MG TABLET PO PRN (16:00)
[2019-03-12] MEDS ORDERED: MAG HYDROX/AL HYDROX/SIMETH ES 30 ML SUSPENSION UDCUP PO PRN (16:00)
[2019-03-12] MEDS ORDERED: OMEPRAZOLE 20 MG CAPSULE PO PRN (16:00)
[2019-03-12] MEDS ORDERED: MAGNESIUM HYDROXIDE SUSPENSION 30 ML UDCUP PO PRN (16:00)
[2019-03-12] MEDS ORDERED: ONDANSETRON HCL 4 MG TABLET PO PRN (16:00)
[2019-03-12] MEDS ORDERED: CloNIDine HCL 0.1 MG TABLET PO PRN (16:00)
[2019-03-13 06:40] VITALS: BP 125/80
[2019-03-13 08:42] LABS: CHOL/HDL RATIO 2.6 (4.2-7.3); FREE T4 (FREE THYROXINE) 1.12 ng/dL (0.76-1.46); THYROID STIMULATING HORMONE 0.71 uIU/mL (0.36-3.74)
[2019-03-13] MEDS: ARIPiprazole 10 MG TABLET PO SCH (15:09)
[2019-03-13] MEDS: GABAPENTIN 300 MG CAPSULE PO SCH (16:29)
[2019-03-14 00:53] VITALS: BP 137/79
[2019-03-14] MEDS: GABAPENTIN 300 MG CAPSULE PO SCH ×3 (08:55→16:28)
[2019-03-14] MEDS: ARIPiprazole 10 MG TABLET PO SCH (08:55)
[2019-03-14 11:16] VITALS: BP 135/77
[2019-03-14] MEDS: IBUPROFEN 600 MG TABLET PO PRN (11:16)
[2019-03-14 16:47] VITALS: BP 138/85
[2019-03-14] MEDS: LORazepam 2 MG TABLET PO PRN (16:52)
[2019-03-15] MEDS: ARIPiprazole 10 MG TABLET PO SCH (08:07)
[2019-03-15] MEDS: GABAPENTIN 300 MG CAPSULE PO SCH ×3 (08:07→16:30)
[2019-03-15 08:29] VITALS: BP 135/82
[2019-03-15] MEDS: IBUPROFEN 600 MG TABLET PO PRN (08:29)
[2019-03-15] MEDS: LORazepam 2 MG TABLET PO PRN (09:53)
[2019-03-15 16:05] VITALS: BP 121/73
[2019-03-16 00:51] VITALS: BP 137/80
[2019-03-16] MEDS: GABAPENTIN 300 MG CAPSULE PO SCH ×3 (08:44→16:29)
[2019-03-16] MEDS: IBUPROFEN 600 MG TABLET PO PRN (08:45)
[2019-03-16] MEDS: ARIPiprazole 10 MG TABLET PO SCH (08:45)
[2019-03-16 17:50] VITALS: BP 108/76
[2019-03-16] MEDS: ZOLPIDEM TARTRATE 10 MG TABLET PO PRN (20:48)
[2019-03-17 00:16] VITALS: BP 125/100
[2019-03-17 08:16] VITALS: BP 127/91
[2019-03-17] MEDS: ARIPiprazole 10 MG TABLET PO SCH (09:02)
[2019-03-17] MEDS: GABAPENTIN 300 MG CAPSULE PO SCH ×3 (09:02→16:47)
[2019-03-17 16:05] VITALS: BP 127/74
[2019-03-18] MEDS ORDERED: INFLUENZA VIRUS VACCINE QVS 2019-20 (3YR+)/PF 60 MCG/0.5 ML SYRINGE IM ONE (04:45)
[2019-03-18 07:17] VITALS: BP 140/98
[2019-03-18 08:13] VITALS: BP 120/98
[2019-03-18] MEDS: GABAPENTIN 300 MG CAPSULE PO SCH ×3 (08:13→16:02)
[2019-03-18] MEDS: ARIPiprazole 10 MG TABLET PO SCH (08:13)
[2019-03-18 16:00] VITALS: BP 124/84
[2019-03-18] MEDS: IBUPROFEN 600 MG TABLET PO PRN (16:22)
[2019-03-18] MEDS: ZOLPIDEM TARTRATE 10 MG TABLET PO PRN (20:03)
[2019-03-19 03:54] VITALS: BP 125/92
[2019-03-19] MEDS: ARIPiprazole 10 MG TABLET PO SCH (08:21)
[2019-03-19] MEDS: GABAPENTIN 300 MG CAPSULE PO SCH ×2 (08:21→12:40)
[2019-03-19 08:37] VITALS: BP 124/77
== END 2019-03-19 13:55 | disposition home or self-care (01) | DRG 885 ==
LOC: EMS 09:28 → B2X 12:09
PROVIDERS: ADMIT Psychiatry & Neurology Psychiatry; ATTEND Psychiatry & Neurology Psychiatry
DX: F20.0 Paranoid schizophrenia (principal); G47.00 Insomnia, unspecified; G89.29 Other chronic pain; I10 Essential (primary) hypertension; F19.10 Other psychoactive substance abuse, uncomplicated; K59.00 Constipation, unspecified; Z91.19 Patient's noncompliance with other medical treatment and regimen; Z79.899 Other long term (current) drug therapy; Z28.21 Immunization not carried out because of patient refusal; Z88.0 Allergy status to penicillin; Z88.8 Allergy status to other drugs, medicaments and biological substances; Z91.010 Allergy to peanuts; Z71.51 Drug abuse counseling and surveillance of drug abuser
CPT/HCPCS: 84439; 84443; 87081; G0480; J1200; J1630; J2060

== ENCOUNTER 2019-04-12 11:22 | Inpatient (IN) | payer MEDICARE ==
[~2019-04-12] VITALS: Ht 170.2 cm; Wt 67.3 kg
[2019-04-12 11:30] VITALS: BP 139/89
[2019-04-12] MEDS ORDERED: HALOPERIDOL 5 MG TABLET PO PRN (12:15)
[2019-04-12] MEDS ORDERED: ZOLPIDEM TARTRATE 10 MG TABLET PO PRN (12:15)
[2019-04-12] MEDS ORDERED: INFLUENZA VIRUS VACCINE QVS 2019-20 (3YR+)/PF 60 MCG/0.5 ML SYRINGE IM ONE (12:45)
[2019-04-12] MEDS ORDERED: -PHARMACY VACCINE NOTE- MISC ONE (13:00)
[2019-04-12 14:17] VITALS: BP 133/78
[2019-04-12] MEDS ORDERED: ALBUTEROL SULFATE HFA 90 MCG/PUFF 8 GM INHALER IH PRN (15:15)
[2019-04-12] MEDS ORDERED: PETROLATUM,WHITE 28 GM JELLY TP PRN (15:15)
[2019-04-12] MEDS ORDERED: GuaiFENesin/D-METHORPHAN [SUGAR-FREE] 200-20MG/10 ML SYRUP UDCUP PO PRN (15:15)
[2019-04-12] MEDS ORDERED: DOCUSATE SODIUM 100 MG CAPSULE PO PRN (15:15)
[2019-04-12] MEDS ORDERED: IBUPROFEN 400 MG TABLET PO PRN (15:15)
[2019-04-12] MEDS ORDERED: LOPERAMIDE HCL 2 MG CAPSULE PO PRN (15:15)
[2019-04-12] MEDS ORDERED: ACETAMINOPHEN 325 MG TABLET PO PRN (15:15)
[2019-04-12] MEDS ORDERED: MAG HYDROX/AL HYDROX/SIMETH ES 30 ML SUSPENSION UDCUP PO PRN (15:15)
[2019-04-12] MEDS ORDERED: MAGNESIUM HYDROXIDE SUSPENSION 30 ML UDCUP PO PRN (15:15)
[2019-04-12] MEDS ORDERED: CloNIDine HCL 0.1 MG TABLET PO PRN (15:15)
[2019-04-12] MEDS ORDERED: ONDANSETRON HCL 4 MG TABLET PO PRN (15:15)
[2019-04-12] MEDS ORDERED: NICOTINE 14 MG/24 HOUR PATCH TD PRN (15:15)
[2019-04-12 16:03] VITALS: BP 140/94
[2019-04-12] MEDS: BACITRACIN 28.4 GM OINTMENT TP SCH (17:34)
[2019-04-13] MEDS: BACITRACIN 28.4 GM OINTMENT TP SCH ×2 (09:03→16:32)
[2019-04-13] MEDS: ARIPiprazole 10 MG TABLET PO SCH (12:50)
[2019-04-13] MEDS: GABAPENTIN 300 MG CAPSULE PO SCH ×2 (12:50→16:31)
[2019-04-13 16:05] VITALS: BP 143/85
[2019-04-13] MEDS ORDERED: BACITRACIN 28.4 GM OINTMENT TP SCH (17:00)
[2019-04-14 07:11] LABS: BASOPHILS % (AUTO) 0.3 % (0.0-2.0); EOSINOPHILS % (AUTO) 0.6 % (1.0-6.0); HEMOGLOBIN 14.5 g/dL (13.5-17.5); LYMPHOCYTES # (AUTO) 0.5 K/uL (1.0-4.8); LYMPHOCYTES % (AUTO) 5.4 % (22.0-44.0); MEAN CORPUSCULAR HEMOGLOBIN 28.9 pg (26.0-34.0); MEAN CORPUSCULAR HGB CONC 33.7 G/dL (31.0-37.0); MEAN CORPUSCULAR VOLUME 86 fL (80-100); MONOCYTES # (AUTO) 0.6 K/uL (0.1-1.0); MONOCYTES % (AUTO) 7.1 % (2.0-9.0); NEUTROPHILS # (AUTO) 7.9 K/uL (1.8-7.7); PLATELET COUNT (AUTO) 247 K/uL (150-450); RED BLOOD CELL COUNT(AUTO) 5.01 MIL/uL (4.50-5.90); RED CELL DISTRIBUTION WIDTH 13.2 % (11.5-14.5)
[2019-04-14 07:19] LABS: NEUTROPHILS % (AUTO) 86.6 % (40.0-70.0)
[2019-04-14 07:36] LABS: ANION GAP 8 mmol/L (8-16); CARBON DIOXIDE 29 mmol/L (22-29); CHLORIDE 101 mmol/L (98-107); CREATININE 0.88 mg/dL (0.60-1.30); GLOMERULAR FILTR. RATE CALC > 60 mL/min (>60); GLUCOSE,RANDOM 81 mg/dL (70-110); POTASSIUM 4.1 mmol/L (3.5-5.1); SODIUM SERUM 138 mmol/L (136-145); UREA NITROGEN, BLOOD 15 mg/dL (7-18)
[2019-04-14] MEDS: ARIPiprazole 10 MG TABLET PO SCH (08:10)
[2019-04-14] MEDS: GABAPENTIN 300 MG CAPSULE PO SCH ×3 (08:10→16:14)
[2019-04-14] MEDS: BACITRACIN 28.4 GM OINTMENT TP SCH ×2 (11:44→19:05)
[2019-04-14] MEDS ORDERED: ONDANSETRON HCL 4 MG/2 ML VIAL IM PRN (12:15)
[2019-04-14] MEDS: MetroNIDAZOLE 500 MG TABLET PO SCH ×2 (13:00→16:14)
[2019-04-14 16:03] VITALS: BP 132/81
[2019-04-14] MEDS: CIPROFLOXACIN HCL 500 MG TABLET PO SCH (16:14)
[2019-04-15 06:19] VITALS: BP 131/83
[2019-04-15 06:48] LABS: BASOPHILS % (AUTO) 0.3 % (0.0-2.0); EOSINOPHILS % (AUTO) 1.9 % (1.0-6.0); HEMATOCRIT 42.7 % (41-53); HEMOGLOBIN 14.4 g/dL (13.5-17.5); LYMPHOCYTES # (AUTO) 0.7 K/uL (1.0-4.8); LYMPHOCYTES % (AUTO) 7.8 % (22.0-44.0); MEAN CORPUSCULAR HGB CONC 33.8 G/dL (31.0-37.0); MEAN CORPUSCULAR VOLUME 86 fL (80-100); MONOCYTES # (AUTO) 1.1 K/uL (0.1-1.0); MONOCYTES % (AUTO) 11.1 % (2.0-9.0); NEUTROPHILS # (AUTO) 7.6 K/uL (1.8-7.7); NEUTROPHILS % (AUTO) 78.9 % (40.0-70.0); PLATELET COUNT (AUTO) 223 K/uL (150-450); RED BLOOD CELL COUNT(AUTO) 4.97 MIL/uL (4.50-5.90); RED CELL DISTRIBUTION WIDTH 13.3 % (11.5-14.5)
[2019-04-15 07:00] LABS: ANION GAP 4 mmol/L (8-16); CALCIUM, TOTAL 8.8 mg/dL (8.8-10.5); CARBON DIOXIDE 32 mmol/L (22-29); CHLORIDE 102 mmol/L (98-107); CREATININE 1.13 mg/dL (0.60-1.30); GLOMERULAR FILTR. RATE CALC > 60 mL/min (>60); GLUCOSE,RANDOM 77 mg/dL (70-110); POTASSIUM 4.2 mmol/L (3.5-5.1); SODIUM SERUM 138 mmol/L (136-145); UREA NITROGEN, BLOOD 9 mg/dL (7-18)
[2019-04-15 08:57] VITALS: BP 123/89
[2019-04-15] MEDS: BACITRACIN 28.4 GM OINTMENT TP SCH ×3 (09:00→17:08)
[2019-04-15] MEDS: GABAPENTIN 300 MG CAPSULE PO SCH ×4 (09:00→16:11)
[2019-04-15] MEDS: CIPROFLOXACIN HCL 500 MG TABLET PO SCH ×3 (09:00→16:13)
[2019-04-15] MEDS: MetroNIDAZOLE 500 MG TABLET PO SCH ×4 (09:00→16:12)
[2019-04-15] MEDS: ARIPiprazole 10 MG TABLET PO SCH ×2 (09:00→10:09)
[2019-04-15 16:03] VITALS: BP 138/82
[2019-04-16] MEDS: CIPROFLOXACIN HCL 500 MG TABLET PO SCH ×2 (08:13→16:46)
[2019-04-16] MEDS: MetroNIDAZOLE 500 MG TABLET PO SCH ×3 (08:13→16:46)
[2019-04-16] MEDS: GABAPENTIN 300 MG CAPSULE PO SCH ×3 (08:13→16:46)
[2019-04-16] MEDS: BACITRACIN 28.4 GM OINTMENT TP SCH ×2 (08:14→16:47)
[2019-04-16] MEDS: ARIPiprazole 10 MG TABLET PO SCH (08:14)
[2019-04-16 08:19] VITALS: BP 139/73
[2019-04-16 16:04] VITALS: BP 133/73
[2019-04-17 06:47] VITALS: BP 133/85
[2019-04-17 08:16] VITALS: BP 140/80
[2019-04-17] MEDS: GABAPENTIN 300 MG CAPSULE PO SCH ×3 (09:04→16:32)
[2019-04-17] MEDS: ARIPiprazole 10 MG TABLET PO SCH (09:04)
[2019-04-17] MEDS: MetroNIDAZOLE 500 MG TABLET PO SCH ×3 (09:05→16:32)
[2019-04-17] MEDS: CIPROFLOXACIN HCL 500 MG TABLET PO SCH ×2 (09:05→16:32)
[2019-04-17] MEDS: BACITRACIN 28.4 GM OINTMENT TP SCH ×2 (09:06→16:32)
[2019-04-17] MEDS: LORazepam 2 MG TABLET PO PRN (10:24)
[2019-04-17 22:08] VITALS: BP 132/80
[2019-04-18 00:12] VITALS: BP 130/69
[2019-04-18] MEDS: ARIPiprazole 10 MG TABLET PO SCH (08:44)
[2019-04-18] MEDS: MetroNIDAZOLE 500 MG TABLET PO SCH ×3 (08:44→16:29)
[2019-04-18] MEDS: GABAPENTIN 300 MG CAPSULE PO SCH ×3 (08:44→16:29)
[2019-04-18] MEDS: BACITRACIN 28.4 GM OINTMENT TP SCH ×2 (09:23→16:30)
[2019-04-18] MEDS: CIPROFLOXACIN HCL 500 MG TABLET PO SCH ×2 (09:23→16:29)
[2019-04-18 10:37] VITALS: BP 121/67
[2019-04-18 16:08] VITALS: BP 139/72
[2019-04-18] MEDS: LORazepam 2 MG TABLET PO PRN (18:36)
[2019-04-19 00:55] VITALS: BP 119/71
[2019-04-19] MEDS: ARIPiprazole 10 MG TABLET PO SCH (08:14)
[2019-04-19] MEDS: CIPROFLOXACIN HCL 500 MG TABLET PO SCH (08:14)
[2019-04-19] MEDS: MetroNIDAZOLE 500 MG TABLET PO SCH (08:14)
[2019-04-19] MEDS: GABAPENTIN 300 MG CAPSULE PO SCH (08:14)
[2019-04-19] MEDS: BACITRACIN 28.4 GM OINTMENT TP SCH (08:15)
[2019-04-19] MEDS: LORazepam 2 MG TABLET PO PRN (08:16)
[2019-04-19 08:22] VITALS: BP 139/74
[2019-04-19] MEDS ORDERED: CIPR-278 PO (10:20)
[2019-04-19] MEDS ORDERED: METR500 PO (10:20)
== END 2019-04-19 10:35 | disposition home or self-care (01) | DRG 885 ==
LOC: B2X 12:00
PROVIDERS: ADMIT Psychiatry & Neurology Child & Adolescent Psychiatry; ATTEND Psychiatry & Neurology Psychiatry
DX: F20.0 Paranoid schizophrenia (principal); D64.9 Anemia, unspecified; I10 Essential (primary) hypertension; K52.9 Noninfective gastroenteritis and colitis, unspecified; K59.00 Constipation, unspecified; Z53.29 Procedure and treatment not carried out because of patient's decision for other reasons; F15.10 Other stimulant abuse, uncomplicated; G89.29 Other chronic pain; M54.9 Dorsalgia, unspecified; Z59.0 Homelessness; Z79.899 Other long term (current) drug therapy
CPT/HCPCS: 90686; J2405

== ENCOUNTER 2024-09-09 06:12 | Inpatient (IN) | payer MEDICARE, MEDICAID ==
[~2024-09-09] VITALS: Ht 172.7 cm
[~2024-09-09 06:12] MED LIST changes: +ARIP10TA38 PO; -ARIP10TA8 PO; +CIPR-278 PO; +GABA-1181 PO; -GABA-531 PO; +METR500 PO
[2024-09-09 07:19] LABS: BASOPHILS % (AUTO) 1.3 % (0.0-2.0); EOSINOPHILS % (AUTO) 3.9 % (1.0-6.0); HEMATOCRIT 39.5 % (41-53); HEMOGLOBIN 13.1 g/dL (13.5-17.5); LYMPHOCYTES # (AUTO) 1.4 K/uL (1.0-4.8); LYMPHOCYTES % (AUTO) 20.7 % (22.0-44.0); MEAN CORPUSCULAR HEMOGLOBIN 28.4 pg (26.0-34.0); MEAN CORPUSCULAR HGB CONC 33.2 G/dL (31.0-37.0); MEAN CORPUSCULAR VOLUME 86 fL (80-100); MONOCYTES # (AUTO) 0.6 K/uL (0.1-1.0); MONOCYTES % (AUTO) 9.4 % (2.0-9.0); NEUTROPHILS # (AUTO) 4.2 K/uL (1.8-7.7); NEUTROPHILS % (AUTO) 64.7 % (40.0-70.0); PLATELET COUNT (AUTO) 260 K/uL (150-450); RED BLOOD CELL COUNT(AUTO) 4.61 MIL/uL (4.50-5.90); RED CELL DISTRIBUTION WIDTH 13.2 % (11.5-14.5); WHITE BLOOD COUNT (AUTO) 6.6 K/uL (4.5-11.0)
[2024-09-09 07:32] LABS: ALANINE AMINOTRANSFERASE 19 U/L (12-78); ALKALINE PHOSPHATASE 105 U/L (46-116); ASPARTATE AMINOTRANSFERASE 19 U/L (15-37); BILIRUBIN,TOTAL 0.2 mg/dL (0.1-1.0); CARBON DIOXIDE 30 mmol/L (22-29); CHLORIDE 107 mmol/L (98-107); POTASSIUM 3.7 mmol/L (3.5-5.1); SODIUM SERUM 142 mmol/L (136-145); TOTAL PROTEIN, SERUM 7.2 g/dL (6.4-8.2)
[2024-09-09 07:33] LABS: ANION GAP 5 mmol/L (8-16); CALCIUM, TOTAL 7.6 mg/dL (8.8-10.5); CREATININE 1.04 mg/dL (0.60-1.30); GLOMERULAR FILTR. RATE CALC > 60 mL/min (>60); GLUCOSE,RANDOM 90 mg/dL (70-110); UREA NITROGEN, BLOOD 14 mg/dL (7-18)
[2024-09-09 07:36] LABS: COVID AG,FIA SOURCE NASAL SWAB
[2024-09-09 07:47] LABS: ALCOHOL, BLOOD (SERUM) < 3 mg/dL (0-10)
[2024-09-09 07:59] LABS: SARS-COV2 (COVID) ANTIGEN,FIA Negative (Negative)
[2024-09-09] MEDS ORDERED: LORazepam 2 MG TABLET PO PRN (09:30)
[2024-09-09] MEDS ORDERED: ZOLPIDEM TARTRATE 10 MG TABLET PO PRN (09:30)
[2024-09-09] MEDS ORDERED: haloperidoL 5 MG TABLET PO PRN (09:30)
[2024-09-09 13:00] VITALS: O2SAT 100
[2024-09-09 16:37] VITALS: BP 93/70; PULSE 95; RESP 18; TEMP 98.2; O2SAT 100
[2024-09-09 21:40] VITALS: BP 139/84; PULSE 100; RESP 17; TEMP 97.4; O2SAT 97
[2024-09-10] MEDS ORDERED: LOPERAMIDE HCL 2 MG CAPSULE PO PRN ×2 (06:30)
[2024-09-10] MEDS ORDERED: BENZOCAINE/MENTHOL [CEPACOL] LOZENGE PO PRN (06:30)
[2024-09-10] MEDS ORDERED: ONDANSETRON 4 MG TABLET PO PRN (06:30)
[2024-09-10] MEDS ORDERED: MAGNESIUM HYDROXIDE SUSPENSION 30 ML UDCUP PO PRN (06:30)
[2024-09-10] MEDS ORDERED: ALBUTEROL SULFATE HFA 90 MCG/PUFF 8 GM INHALER IH PRN ×2 (06:30)
[2024-09-10] MEDS ORDERED: CloNIDine HCL 0.1 MG TABLET PO PRN ×2 (06:30)
[2024-09-10] MEDS ORDERED: BACITRACIN 28 GM OINTMENT TP PRN (06:30)
[2024-09-10] MEDS ORDERED: PETROLATUM,WHITE 28 GM JELLY TP PRN (06:30)
[2024-09-10] MEDS ORDERED: MAG HYDROX/ALUMINUM HYD/SIMETH ES 30 ML SUSPENSION UDCUP PO PRN ×2 (06:30)
[2024-09-10] MEDS ORDERED: IBUPROFEN 600 MG TABLET PO PRN ×2 (06:30)
[2024-09-10] MEDS ORDERED: OMEPRAZOLE 20 MG CAPSULE PO PRN (06:30)
[2024-09-10] MEDS ORDERED: DOCUSATE SODIUM 100 MG CAPSULE PO PRN (06:30)
[2024-09-10] MEDS: ACETAMINOPHEN 325 MG TABLET PO PRN (06:49)
[2024-09-10 08:00] VITALS: BP 148/85; PULSE 82; RESP 17; TEMP 97; O2SAT 97
[2024-09-10 08:32] LABS: HEMOGLOBIN A1C 5.2 % (3.8-5.6)
[2024-09-10 08:45] LABS: CHOL/HDL RATIO 2.9 (4.2-7.3); T4 (THYROXINE) 6.7 mcg/dL (4.7-13.3); THYROID STIMULATING HORMONE 0.98 uIU/mL (0.36-3.74)
[2024-09-10 09:36] VITALS: BP 148/85; PULSE 82; RESP 17; TEMP 97; O2SAT 97
[2024-09-10 20:38] VITALS: BP 105/67; PULSE 102; RESP 18; TEMP 98.1; O2SAT 100
[2024-09-11 08:52] VITALS: BP 136/62; PULSE 78; RESP 17; TEMP 97; O2SAT 96
[2024-09-11] MEDS: GABAPENTIN 300 MG CAPSULE PO SCH (14:08)
[2024-09-11] MEDS: HydrOXYzine PAMOATE 50 MG CAPSULE PO SCH (16:40)
[2024-09-11] MEDS: ARIPiprazole 10 MG TABLET PO SCH (20:25)
[2024-09-11 20:28] VITALS: BP 148/101; PULSE 83; RESP 18; TEMP 98.8; O2SAT 98
[2024-09-12 09:20] VITALS: BP 174/101; PULSE 80; RESP 18; TEMP 98.3; O2SAT 97
[2024-09-12 20:49] VITALS: BP 177/80; PULSE 71; RESP 18; TEMP 97.7; O2SAT 100
[2024-09-13 00:52] VITALS: BP 143/86; RESP 16; O2SAT 96
[2024-09-13 08:22] VITALS: BP 156/88; PULSE 93; RESP 17; TEMP 97.7; O2SAT 96
[2024-09-13 13:03] VITALS: BP 143/93; PULSE 104; RESP 19; TEMP 98; O2SAT 97
[2024-09-13 20:16] VITALS: BP 134/81; PULSE 74; RESP 49; TEMP 97.6; O2SAT 100
[2024-09-13] MEDS: AmLODIPine BESYLATE 10 MG TABLET PO SCH (20:38)
[2024-09-14 08:09] LABS: APPEARANCE,URINE CLEAR (CLEAR); BILIRUBIN,URINE NEGATIVE (NEGATIVE); COLOR,URINE LIGHT YELLOW (YELLOW); GLUCOSE, URINE (UA) NEGATIVE (NEGATIVE); KETONES,URINE NEGATIVE (NEGATIVE); LEUKOCYTE ESTERASE ,URINE NEGATIVE (NEGATIVE); NITRATE,URINE NEGATIVE (NEGATIVE); OCCULT BLOOD,URINE NEGATIVE (NEGATIVE); PH,URINE 6.5 (5.0-8.0); PROTEIN,URINE NEGATIVE (NEGATIVE); SPECIFIC GRAVITIY, URINE 1.012 (1.003-1.030); UROBILINOGEN,URINE <=1.0 mg/dL (<=1.0)
[2024-09-14 08:17] VITALS: BP 149/87; PULSE 95; RESP 18; TEMP 98.1; O2SAT 98
[2024-09-14 20:24] VITALS: BP 90/45; PULSE 87; RESP 17; TEMP 98.1; O2SAT 100
[2024-09-14 20:38] VITALS: BP 132/75; PULSE 87; RESP 18; TEMP 98.3; O2SAT 100
[2024-09-15 09:11] VITALS: BP 142/91; PULSE 95; RESP 18; TEMP 98.2; O2SAT 100
[2024-09-15 20:35] VITALS: BP 100/61; PULSE 74; RESP 17; TEMP 98.4; O2SAT 100
[2024-09-16 08:44] VITALS: BP 129/90; PULSE 109; RESP 17; TEMP 98; O2SAT 100
[2024-09-16 20:21] VITALS: BP 112/60; PULSE 88; RESP 18; TEMP 98.1; O2SAT 95
[2024-09-17 08:32] LABS: ALCOHOL, URINE DRUG SCREEN NEGATIVE (NEGATIVE); AMPHET/METH SCREEN,URINE NEGATIVE (NEGATIVE); BARBITURATE SCREEN, URINE NEGATIVE (NEGATIVE); BENZODIAZEPINES SCREEN,URINE NEGATIVE (NEGATIVE); CANNABINOID SCREEN,URINE POSITIVE (NEGATIVE); COCAINE SCREEN,URINE NEGATIVE (NEGATIVE); METHADONE SCREEN, URINE NEGATIVE (NEGATIVE); OPIATE SCREEN,URINE NEGATIVE (NEGATIVE); PHENCYCLIDINE SCREEN,URINE NEGATIVE (NEGATIVE)
[2024-09-17 08:40] VITALS: BP 132/82; PULSE 87; RESP 18; TEMP 98.1; O2SAT 100
[2024-09-17] MEDS ORDERED: NICOTINE POLACRILEX 4 MG LOZENGE PO PRN (18:45)
[2024-09-17 20:30] VITALS: BP 101/56; PULSE 86; RESP 16; TEMP 98.6; O2SAT 98
[2024-09-18 09:16] VITALS: BP 143/92; PULSE 95; RESP 18; TEMP 97.8; O2SAT 97
[2024-09-18] MEDS ORDERED: HYDR50CA7 PO (10:21)
[2024-09-18] MEDS ORDERED: ARIP10TA38 PO (10:22)
[2024-09-18] MEDS ORDERED: AMLO-258 PO (11:44)
== END 2024-09-18 12:18 | disposition home or self-care (01) | DRG 885 ==
LOC: EMS 06:13 → B2S 13:56 → B2X 14:00
PROVIDERS: ADMIT Psychiatry & Neurology Psychiatry; ATTEND Psychiatry & Neurology Psychiatry
DX: F20.9 Schizophrenia, unspecified (principal); Z59.02 Unsheltered homelessness; I10 Essential (primary) hypertension; Z20.822 Contact with and (suspected) exposure to COVID-19; J44.9 Chronic obstructive pulmonary disease, unspecified; M25.551 Pain in right hip; G47.00 Insomnia, unspecified; F12.90 Cannabis use, unspecified, uncomplicated; F41.9 Anxiety disorder, unspecified; F10.90 Alcohol use, unspecified, uncomplicated; Z99.3 Dependence on wheelchair
CPT/HCPCS: 80048; 80061; 80076; 80307; 81003; 83036; 84436; 84443; 85025; G0480